=== PATIENT | male | born 1995 | race Caucasian/White ===

== ENCOUNTER 2018-02-27 16:38 | Emergency (ER) | payer OTHER ==
[~2018-02-27] VITALS: Ht 180.3 cm; Wt 81.7 kg
[~2018-02-27 16:38] MED LIST: IMITREX100 MG; MEDROL DOSPAK21 TA1 PO
[2018-02-27 17:50] LABS: ABSOLUTE LYMPHOCYTES 1.2 thou/uL (0.8-5.3); ABSOLUTE MONOCYTES 0.7 thou/uL (0.0-1.2); ABSOLUTE NEUTROPHILS 9.2 thou/uL (1.6-8.1); BASOPHILS 0.1 %; CALCIUM 9.4 mg/dL (8.5-10.1); EOSINOPHILS 0.3 %; HEMATOCRIT 49.4 % (42.0-52.0); HEMOGLOBIN 17.5 gm/dL (14.0-18.0); LYMPHOCYTES 10.6 %; MCH 31.4 pg (26.0-34.0); MCHC 35.5 g/dL (28.0-37.0); MCV 88.5 fL (80.0-100.0); MONOCYTES 6.2 %; MPV 8.6 fl. (7.2-11.1); NUCLEATED RBCS 0 /100WBC; PLATELET COUNT* 211 thou/uL (150-400); POLYS 82.8 %; POTASSIUM 3.3 mmol/L (3.5-5.1); RBC 5.58 mil/uL (4.50-6.00); WBC 11.1 thou/uL (4.0-11.0)
[2018-02-27 17:55] LABS: ALBUMIN 4.2 g/dL (3.4-5.0); TOTAL BILIRUBIN 0.8 mg/dL (<0.1-1.0); TOTAL PROTEIN 7.7 g/dL (6.4-8.2)
[2018-02-27 18:51] LABS: URINE BILIRUBIN NEGATIVE (Negative); URINE BLOOD NEGATIVE (Negative); URINE CLARITY CLEAR; URINE COLOR YELLOW; URINE GLUCOSE-RANDOM NEGATIVE (Negative); URINE LEUKOCYTES-REFLEX NEGATIVE (Negative); URINE NITRITE-REFLEX NEGATIVE (Negative); URINE PROTEIN TRACE (Negative); URINE UROBILINOGEN 0.2 E.U./dl (0.2-1.0)
[2018-02-27 18:52] LABS: URINE KETONES 3+ (Negative)
[2018-02-27 18:57] LABS: CSF GLUCOSE 53 mg/dl (40-70); CSF PROTEIN 41.4 mg/dl (15-45)
[2018-02-27 19:01] LABS: AMP/METHAMP Negative (Negative); BARBITURATES Negative (Negative); BENZODIAZEPINES Negative (Negative); COCAINE Negative (Negative); METHADONE Negative (Negative); OPIATES Negative (Negative); PCP Negative (Negative); THC POSITIVE (Negative)
[2018-02-27 19:43] LABS: CSF CLARITY CLEAR; CSF COLOR COLORLESS; CSF RBC 0 /mm3; CSF WBC 2 /mm3 (0-10); VOLUME 11 ml
[2018-02-27 19:44] LABS: CSF CLARITY CLEAR; CSF COLOR COLORLESS; CSF RBC 1 /mm3; CSF WBC 1 /mm3 (0-10); VOLUME 11 ml
[2018-02-27 22:40] VITALS: BP 141/59
== END 2018-02-27 22:40 | disposition home or self-care (01) ==
LOC: M.ERS 16:38
PROVIDERS: Emergency Medicine; Emergency Medicine Emergency Medical Services
DX: G43.109 Migraine with aura, not intractable, without status migrainosus (principal); R41.82 Altered mental status, unspecified; G93.40 Encephalopathy, unspecified

== ENCOUNTER 2018-03-01 13:55 | Emergency (ER) | payer OTHER ==
[~2018-03-01] VITALS: Ht 180.3 cm; Wt 83.9 kg
[2018-03-01 15:03] LABS: ABSOLUTE LYMPHOCYTES 1.1 thou/uL (0.8-5.3); ABSOLUTE MONOCYTES 0.7 thou/uL (0.0-1.2); ABSOLUTE NEUTROPHILS 6.7 thou/uL (1.6-8.1); BASOPHILS 0.6 %; EOSINOPHILS 0.1 %; HEMATOCRIT 45.9 % (42.0-52.0); HEMOGLOBIN 16.5 gm/dL (14.0-18.0); LYMPHOCYTES 13.2 %; MCH 31.7 pg (26.0-34.0); MCHC 35.9 g/dL (28.0-37.0); MCV 88.3 fL (80.0-100.0); MONOCYTES 8.1 %; MPV 8.2 fl. (7.2-11.1); NUCLEATED RBCS 0 /100WBC; PLATELET COUNT* 225 thou/uL (150-400); RDW-CV 13.2 % (10.5-14.5); WBC 8.5 thou/uL (4.0-11.0)
[2018-03-01 15:09] LABS: CALCIUM 9.3 mg/dL (8.5-10.1); POTASSIUM 3.2 mmol/L (3.5-5.1)
[2018-03-01 15:14] LABS: ALBUMIN 4.5 g/dL (3.4-5.0); TOTAL BILIRUBIN 0.9 mg/dL (<0.1-1.0); TOTAL PROTEIN 7.9 g/dL (6.4-8.2)
[2018-03-01] MEDS ORDERED: ZOFRAN ODT4 MG DISSOLVE (15:37)
[2018-03-01 16:03] VITALS: BP 145/78
== END 2018-03-01 16:05 | disposition home or self-care (01) ==
LOC: M.ERS 13:55
PROVIDERS: Emergency Medicine Emergency Medical Services
DX: K52.9 Noninfective gastroenteritis and colitis, unspecified (principal); G43.909 Migraine, unspecified, not intractable, without status migrainosus